=== PATIENT | male | born 1955 | race Caucasian/White ===

== ENCOUNTER 2020-09-08 12:20 | Emergency (ER) | payer OTHER ==
[~2020-09-08 12:20] MED LIST: INDOCIN25 MG PO
[2020-09-08 13:41] LABS: BASOPHIL 0.3 % (0-2); EOSINOPHIL 1.3 % (0-5); HGB 14.8 g/dl (13.2-18.0); LYMPHOCYTE 24.4 % (15-48); MCH 28.4 pg (25.0-31.0); MCHC 32.2 g/dL (32.0-36.0); MCV 88.3 fL (78.0-100.0); MONOCYTE 11.6 % (0-12); MPV 11.1 fL (6.0-9.5); NEUTROPHIL 61.8 % (41-80); NRBC 0; PLT 150 K/uL (150-400); RBC 5.21 M/uL (4.70-6.00); RDW 14.1 % (11.5-14.0); WBC 7.9 K/uL (4.0-10.5)
[2020-09-08 13:57] LABS: ALBUMIN 3.7 g/dL (3.4-5.0); BILIRUBIN - TOTAL 0.3 mg/dL (0.2-1.0); BUN/CREAT RATIO (CALC) 17.3 RATIO; C-REACTIVE PROTEIN 1.1 mg/dL (<=0.90); CREATININE 1.27 mg/dL (0.67-1.17); GLOBULIN (CALCULATION) 3.7 g/dL; POTASSIUM 4.3 mmol/L (3.5-5.1); TOTAL PROTEIN 7.4 g/dL (6.4-8.2); URIC ACID 8.7 mg/dL (3.5-7.2)
[2020-09-08] MEDS ORDERED: MEDROL 4MG DOSEP4 MG PO (14:14)
[2020-09-08] MEDS ORDERED: NORCO 5-325 TA1 EACH PO (14:14)
[2020-09-08] MEDS ORDERED: INDOCIN25 MG PO (14:14)
== END 2020-09-08 14:44 | disposition home or self-care (01) ==
LOC: FER 12:20
PROVIDERS: Emergency Medicine
DX: M10.041 Idiopathic gout, right hand (principal); Z88.7 Allergy status to serum and vaccine
CPT/HCPCS: 36415; 80053; 84550; 85025; 86140; J1885; J2930

== ENCOUNTER 2020-09-29 12:23 | Emergency (ER) | payer MEDICARE, OTHER ==
[~2020-09-29 12:23] MED LIST changes: +MEDROL 4MG DOSEP4 MG PO; +NORCO 5-325 TA1 EACH PO
[2020-09-29] MEDS ORDERED: MEDROL 4MG DOSEP4 MG PO (13:54)
[2020-09-29] MEDS ORDERED: NORCO 5-325 TA1 EACH PO (13:54)
[2020-09-29] MEDS ORDERED: COLCHICINE0.6 M1 PO (13:54)
== END 2020-09-29 14:36 | disposition home or self-care (01) ==
LOC: FER 12:23
DX: M10.041 Idiopathic gout, right hand (principal); Z88.7 Allergy status to serum and vaccine
CPT/HCPCS: 99283